=== PATIENT | female | born 1955 | race Two or more races ===

== ENCOUNTER 2022-08-21 11:21 | Outpatient (REF) | payer OTHER, SELFPAY ==
--- NOTE | ~2022-08-21 | XR_ITS ---
EXAMINATION: XR CERVICAL SPINE CLINICAL INFORMATION: Radiculopathy COMPARISON: None available. TECHNIQUE: 4 views of the cervical spine including flexion-extension were obtained. FINDINGS: Bone alignment is normal. No fracture or dislocation. There are postsurgical changes from ACDF at C5-C6. There is mild degenerative spondylosis at C6-C7. No instability on flexion-extension views. Normal prevertebral soft tissues. XR/XR cervical spine 4V IMPRESSION: Postsurgical changes from ACDF at C5-C6.
--- NOTE | ~2022-08-21 | XR_ITS ---
EXAMINATION: XR LUMBOSACRAL SPINE WITH OBLIQUES CLINICAL INFORMATION: Low back pain and sciatica COMPARISON: None available. TECHNIQUE: AP, flexion and extension, and lateral views of the lumbar spine. FINDINGS: There is curvature of the lower lumbar spine to the right. There is a 5 mm anterior subluxation of L4 with respect L5. This does not change with flexion-extension views. There is degenerative spondylosis and degenerative disc disease of the lower thoracic spine, L1-L2 and L2-L3. Lower lumbar spine facet arthritis. XR/XR lumbar spine 4V min IMPRESSION: 5 mm anterior subluxation of L4 with respect L5 stable on flexion-extension views. Degenerative changes.
== END 2022-08-21 11:22 | disposition home or self-care (01) ==
LOC: HO.HOSX 11:21
PROVIDERS: PCP Nurse Practitioner Family; Visit Provider Physician Assistant
DX: M54.12 Radiculopathy, cervical region (principal); M54.40 Lumbago with sciatica, unspecified side
CPT/HCPCS: 72050; 72110; 99212

== ENCOUNTER 2022-09-10 15:52 | Emergency (ER) | payer MEDICARE, MEDICAID, SELFPAY ==
--- NOTE | 2022-09-10 16:04 | ED.BACK ---
HPI - Back Pain/Injury General Chief Complaint: Back Pain/Injury Stated Complaint: back pain Time Seen by Provider: 09/10/22 16:21 History of Present Illness HPI Narrative: patient complains of back pain not controlled with Tylenol Motrin, she is under the care of the back specialist here at [place] and is being scheduled for an MRI, she complains of pain on both sides of her back worse on the right radiating down her legs, there is no numbness no loss of sensation no weakness no changes to bowel or bladder Related Data Home Medications Medication Instructions Recorded Confirmed albuterol sulfate 200 mcg capsules mcg inhalation 08/21/22 for inhalation amlodipine 10 mg tablet 10 mg PO DAILY 08/21/22 docusate sodium 100 mg capsule 100 mg PO BID 08/21/22 ergocalciferol (vitamin D2) 200 200 mcg PO DAILY 08/21/22 mcg/mL (8,000 unit/mL) oral drops lansoprazole 30 mg capsule,delayed 30 mg PO DAILY 08/21/22 release meclizine 25 mg tablet (Dramamine 25 mg PO DAILY PRN 08/21/22 (meclizine)) metformin 500 mg/5 mL oral solution 500 mg PO BID 08/21/22 Previous Rx's Medication Instructions Recorded oxycodone 5 mg tablet 5 mg PO Q6H PRN pain #20 tabs 09/10/22 Allergies Allergy/AdvReac Type Severity Reaction Status Date / Time codeine Allergy Dizziness Verified 08/21/22 11:43 hydromorphone Allergy Hives Verified 09/10/22 16:12 Vidodin Allergy Dizziness Uncoded 08/21/22 11:43 [facility] Past Medical History Source: nursing notes reviewed Physical Exam Vital Signs: Vital Signs: Last Vital Signs Temp 97.1 F 09/10/22 16:06 Pulse 80 09/10/22 16:06 Resp 20 09/10/22 16:06 BP 142/104 H 09/10/22 16:06 Pulse Ox 98 09/10/22 16:06 O2 Del Method Room Air 09/10/22 16:06 BMI result Body Mass Index 42.4 general appearance no distress Head is normocephalic atraumatic Neck is supple nontender Chest clear to auscultation bilateral Chest wall nontender Abdomen soft nontender The back had bilateral lower lumbar tenderness, no focal bony tenderness, skin of the back was normal, no rashes no redness Extremities for range of motion x4 Neuro no focal motor sensory deficits Course Course Course Narrative: This is a rapid medical exam. Deferred additional HPI, ROS, PE to primary provider. 67 yo female with history of asthma, pre-diabetes, HTN, cervical fusion here with lower back pain radiates to both legs L>R, worsened with movement. No numbness in the groin, NO bowel or bladder incontinence. Has MRI schedule 10/14. Followed by Spine office ([facility]). Patient seen in triage by Spine MD LESLYE. They can possibly arrange outpatient MRI for patient tomorrow, feels patient needs better pain control Patient without neurologic deficit no fever no changes to bowel or bladder is treated with pain medicine with improvement and discharged to follow with back specialist and is scheduled for MRI tomorrow Medications Administered Discontinued Medications Generic Name Dose Route Start Last Admin Trade Name Freq PRN Reason Stop Dose Admin Oxycodone HCl 5 mg 09/10/22 17:21 09/10/22 17:28 Oxycodone Hcl Immed Release 5 Mg Tablet PO 09/10/22 17:22 5 mg ONCE ONE Administration Discharge Plan Discharge Clinical Impression: Back pain Patient Disposition: Home, Self-Care Additional Instructions: we observed for almost an hour in the oxycodone which is a strong narcotic did not seem to have any bad affect so I am writing a prescription most adults 1 or 2 tablets is all that is needed at safe to take with Tylenol and Motrin Follow with if back specialist as scheduled Return any time for weakness incontinence severe pain fever any worse condition or any concerns Prescriptions: New oxycodone 5 mg tablet 5 mg PO Q6H PRN (Reason: pain) Qty: 20 0RF Rx Instructions: Partial Fill upon patient request. No Action lansoprazole 30 mg capsule,delayed release(DR/EC) 30 mg PO DAILY albuterol sulfate 200 mcg capsule inhalation docusate sodium 100 mg capsule 100 mg PO BID ergocalciferol (vitamin D2) 200 mcg/mL (8,000 unit/mL) drops 200 mcg PO DAILY meclizine [Dramamine (meclizine)] 25 mg tablet 25 mg PO DAILY PRN amlodipine 10 mg tablet 10 mg PO DAILY metformin 500 mg/5 mL solution 500 mg PO BID Interventions: ED Discharge Assessment Last Done: 09/10/22 18:56 Discharge Date/Time: 09/10/22 18:57
[2022-09-10 16:06] VITALS: BP 142/104; PULSE 80; RESP 20; TEMP 36.2; O2SAT 98; BMI 42.4
--- NOTE | 2022-09-10 16:51 | HO.NEUROPN_ITS ---
Neurosurgery Operative Note Date of Service: 09/10/22 Narrative: Mrs Jade call our office today to discuss the ongoing pain she was having in her legs, left greater than right. The pain was so bad and the MRI had been pushed also long she want to go to the emergency room for evaluation. Any time she tries to stand walk, or even if she sitting down she getting severe pain cramping going down her legs left greater than right. Denies any fevers, denies any urinary symptoms. On exam, she is uncomfortable but can stand up on her own with her cane. She can move all major muscle groups, thorough motor testing difficult secondary to pain. She had no sensory loss. No cauda equina symptoms, so rectal exam deferred. I discussed the situation with the patient as well as the physician health care legal assistant bill, that we will try to get the MRI scheduled on our end in the office tomorrow in [place] at the [facility]. Is already approved by her insurance company, we just need to get the location of the MRI changed because the 1 at [place] was going to take until the end of September. The PA Bill is going to get her comfortable, so she can get up and move around some at home and we can get her to the MRI and then formulate a surgical plan. Dr. Tang where the patient, updated on the status and agrees with the plan as outlined.
[2022-09-10] MEDS: oxyCODONE HCl Immed Release 5 MG TABLET PO (17:28)
== END 2022-09-10 18:57 | disposition home or self-care (01) ==
PROVIDERS: Emergency Provider Emergency Medicine Emergency Medical Services
DX: M54.50 Low back pain, unspecified (principal); Z79.899 Other long term (current) drug therapy
CPT/HCPCS: 99283

== ENCOUNTER 2022-10-29 16:20 | Inpatient (IN) | payer OTHER, SELFPAY ==
--- NOTE | 2022-09-24 | ECG_ITS ---
Test Reason : PRE OP in wheelchair Blood Pressure : / mmHG Vent. Rate : 068 BPM Atrial Rate : 068 BPM P-R Int : 194 ms QRS Dur : 098 ms QT Int : 400 ms P-R-T Axes : 052 -06 044 degrees QTc Int : 425 ms Normal sinus rhythm Moderate voltage criteria for LVH, may be normal variant ( R in aVL , Aaron product ) Nonspecific T wave abnormality Abnormal ECG No previous ECGs available Referred By: Yesica Christina Electronically Signed By:Emanuel Crowe
[2022-09-24 12:11] VITALS: BP 181/80; PULSE 72; RESP 16; O2SAT 97; BMI 43.2
--- NOTE | 2022-09-24 12:29 | HO.ANESPROP2 ---
Documented by User: Yesica Christina NP 11/02/22 09:54 HPI - Anesthesia Eval Consult details Narrative: 67yo F for L4-5 Oblique Lumbar Interbody Fusion, 11/03/22 No recent illness NO CP/SOB. Activity limited to back pain. Asthma stable GERD controlled with ppi FBS ~110-135 BP elevated at PAT. White coat htn. BP @ home 137/80. 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 Case/EKG reviewed with Dr Michael PINEDA Active Problems Active Problems: All Active Problems (Updated 09/24/22 @ 12:10 by Jessie Pulido, CHE) Cervical radiculopathy (Acute) Back pain of lumbar region with sciatica (Acute) Past Medical History Medical History Asthma Depression Diabetes GERD (gastroesophageal reflux disease) History of pneumonia HTN (hypertension) Hx of cancer of uterus Neck pain Peptic ulcer disease PONV (postoperative nausea and vomiting) Family History Family history of problems with anesthesia: No Surgical History Surgical History History of esophagogastroduodenoscopy (EGD) History of hysterectomy Hx of colonoscopy History of Problems with Anesthesia: Yes (PONV) Social History Social History Are you a primary home health care social worker to a significant other at home: No Do you presently have visiting nurse or other home services: Yes (BRANCH EMPLOYMENT COORDINATOR) Patient Tobacco Use Status: Former Tobacco user Quit Date: 2014 Tobacco use type: Cigarette Use of substances other than those prescribed or required for medical reasons: No Have you been hit, kicked, punched, or otherwise hurt by someone within the past year? If so, by whom?: No Spiritual Healthcare Practices: no Yazdanism Healthcare Practices: no Cultural Healthcare Practices: no Are you DNR?: No Advance Directives: Yes Advance Directives Information Provided: No Advance Directives on File: Yes Advance Directives Date on File: 04/04/18 Recently lost weight without trying: No Nutrition Risks: No Nutritional Risk Meds Allergies Allergy/AdvReac Type Severity Reaction Status Date / Time acetaminophen [From Vicodin] Allergy Dizziness, Verified 09/28/22 12:22 hives bee pollen [bee stings] Allergy Anaphylaxis Verified 09/24/22 12:29 codeine Allergy Dizzy, Verified 09/24/22 12:29 Swelling hydrocodone [From Vicodin] Allergy Dizziness, Verified 09/28/22 12:22 hives hydromorphone Allergy Hives Verified 09/10/22 16:12 spider venom [spider bites] Allergy Anaphylaxis Verified 09/24/22 12:29 Home Medications Medication Instructions Recorded Confirmed Last Taken Type amlodipine 10 mg tablet 10 mg PO DAILY 08/21/22 09/24/22 Unknown History docusate sodium 100 mg capsule 100 mg PO BID 08/21/22 09/24/22 Unknown History lansoprazole 30 mg capsule,delayed 30 mg PO DAILY 08/21/22 09/24/22 Unknown History release meclizine 25 mg tablet (Dramamine 25 mg PO DAILY PRN Vertigo 08/21/22 09/24/22 Unknown History (meclizine)) albuterol sulfate 90 mcg/actuation inhalation 09/24/22 Unknown History aerosol inhaler (Ventolin HFA) chlorthalidone 25 mg tablet 25 mg PO DAILY 09/24/22 09/24/22 Unknown History cholecalciferol (vitamin D3) 50 50 mcg PO DAILY 09/24/22 09/24/22 Unknown History mcg (2,000 unit) capsule (Vitamin D3) epinephrine 0.3 mg/0.3 mL 0.3 ml IM NEEDED anaphylaxis 09/24/22 09/24/22 Unknown History injection, auto-injector lisinopril 20 mg tablet 20 mg PO DAILY 09/24/22 09/24/22 Unknown History metformin 1,000 mg tablet 500 mg PO BID diabetes mellitus 09/24/22 09/24/22 Unknown History Exam Exam Date and Time: September 24, 2022 1229 Height,Weight and Vital Signs: Height 5 ft 2 in Weight 107.048 kg Last Vital Signs Pulse 72 09/24/22 12:11 Resp 16 09/24/22 12:11 BP 181/80 H 09/24/22 12:11 Pulse Ox 97 09/24/22 12:11 O2 Del Method Room Air 09/24/22 12:11 Pertinent Lab Results Pertinent Lab Results: Laboratory Tests 09/24/22 09/24/22 12:57 12:57 WBC 5.8 Hgb 13.3 Hct 38.9 Plt Count 263 Sodium 140 Potassium 3.4 Chloride 101 Carbon Dioxide 29 BUN 16 Creatinine 0.84 Narrative Narrative: EKG 09/2022 Vent. Rate : 068 BPM ? ? Atrial Rate : 068 BPM ?? P-R Int : 194 ms? QRS Dur : 098 ms ? ? QT Int : 400 ms ? ? ? P-R-T Axes : 052 -06 044 degrees ?? QTc Int : 425 ms ? Normal sinus rhythm Moderate voltage criteria for LVH, may be normal variant ( R in aVL , Aaron product ) Nonspecific T wave abnormality Abnormal ECG No previous ECGs available Airway Mallampati Class: I TM Dist: >3cm Neck ROM: Limited Partial: Upper Loose/Missing/Broken Teeth: Yes (few chipped lower teeth) Heart: RRR Lungs: CTAB Assessment and Plan Assessment Anesthesia Assessment: Anesthesia Plan Discussed and PAT Visit Final Anesthetic Review Family History of Problems with Anesthesia: No History of Problems with Anesthesia: Yes (PONV) Documented by User: David Wooten MD 11/03/22 11:01 [facility] Past Medical History Medical History Asthma Depression Diabetes GERD (gastroesophageal reflux disease) History of pneumonia HTN (hypertension) Hx of cancer of uterus Neck pain Peptic ulcer disease PONV (postoperative nausea and vomiting) Surgical History Surgical History History of esophagogastroduodenoscopy (EGD) History of hysterectomy Hx of colonoscopy History of Problems with Anesthesia: Yes (PONV, Allergy to Dilaudid) Social History Social History Are you a primary home health care social worker to a significant other at home: No Do you presently have visiting nurse or other home services: Yes ([employer] EMPLOYMENT COORDINATOR) Patient Tobacco Use Status: Former Tobacco user Quit Date: 2014 Tobacco use type: Cigarette Use of substances other than those prescribed or required for medical reasons: No Have you been hit, kicked, punched, or otherwise hurt by someone within the past year? If so, by whom?: No Spiritual Healthcare Practices: no Yazdanism Healthcare Practices: no Cultural Healthcare Practices: no Are you DNR?: No Advance Directives: Yes Advance Directives Information Provided: No Advance Directives on File: Yes Advance Directives Date on File: 04/04/18 Recently lost weight without trying: No Nutrition Risks: No Nutritional Risk Meds Allergies Allergy/AdvReac Type Severity Reaction Status Date / Time acetaminophen [From Vicodin] Allergy Dizziness, Verified 09/28/22 12:22 hives bee pollen [bee stings] Allergy Anaphylaxis Verified 09/24/22 12:29 codeine Allergy Dizzy, Verified 09/24/22 12:29 Swelling hydrocodone [From Vicodin] Allergy Dizziness, Verified 09/28/22 12:22 hives hydromorphone Allergy Hives Verified 09/10/22 16:12 spider venom [spider bites] Allergy Anaphylaxis Verified 09/24/22 12:29 Home Medications Medication Instructions Recorded Confirmed Last Taken Type amlodipine 10 mg tablet 10 mg PO DAILY 08/21/22 09/24/22 Unknown History docusate sodium 100 mg capsule 100 mg PO BID 08/21/22 09/24/22 Unknown History lansoprazole 30 mg capsule,delayed 30 mg PO DAILY 08/21/22 09/24/22 Unknown History release meclizine 25 mg tablet (Dramamine 25 mg PO DAILY PRN Vertigo 08/21/22 09/24/22 Unknown History (meclizine)) albuterol sulfate 90 mcg/actuation inhalation 09/24/22 Unknown History aerosol inhaler (Ventolin HFA) chlorthalidone 25 mg tablet 25 mg PO DAILY 09/24/22 09/24/22 Unknown History cholecalciferol (vitamin D3) 50 50 mcg PO DAILY 09/24/22 09/24/22 Unknown History mcg (2,000 unit) capsule (Vitamin D3) epinephrine 0.3 mg/0.3 mL 0.3 ml IM NEEDED anaphylaxis 09/24/22 09/24/22 Unknown History injection, auto-injector lisinopril 20 mg tablet 20 mg PO DAILY 09/24/22 09/24/22 Unknown History metformin 1,000 mg tablet 500 mg PO BID diabetes mellitus 09/24/22 09/24/22 Unknown History Assessment and Plan Final Anesthetic Review History of Problems with Anesthesia: Yes (PONV, Allergy to Dilaudid) NPO: Yes ASA Class: III Final Preanesthetic Review: No Changes in Pt Med Stat, Meds/Allgs Chart Reviewed, Consent Obtained/Reviewed and Anes Risks/Benef Reviewed Patient Risk: Intermediate Procedure Risk: Intermediate Anesthetic Plan Anesthetic Plan: GA Disposition: Standard PACU
[2022-09-24 13:38] LABS: Hematocrit 38.9 % (37.0-47.0); Hemoglobin 13.3 g/dl (12.0-16.0); Mean Corpuscular HGB Conc 34.2 g/dl (31.0-35.0); Mean Corpuscular Hemoglobin 28.9 pg (27.0-33.0); Mean Corpuscular Volume 84.4 fL (80.0-98.0); Mean Platelet Volume 11.4 fL (9.4-12.3); Platelet Count 263 X10*3/uL (160-400); Red Blood Count 4.61 X10*6/uL (4.20-5.50); White Blood Count 5.8 X10*3/uL (4.8-10.8)
[2022-09-24 13:43] LABS: Estimated Average Glucose 140 mg/dL; Hemoglobin A1c % 6.5 %
[2022-09-24 14:02] LABS: Anion Gap 13 (12-20); Blood Urea Nitrogen 16 mg/dL (9-16); Calcium 10.3 mg/dL (8.4-10.2); Carbon Dioxide 29 mmol/L (22-29); Chloride 101 mmol/L (96-108); Creatinine Clr Calc Pharmacy 76.8; Estimated Glomerular Filt Rate > 60; Glucose Random 179 mg/dL (60-115); Potassium 3.4 mmol/L (3.3-5.1); Sodium 140 mmol/L (135-145)
--- NOTE | 2022-09-25 17:38 | PHA.MEDREC ---
Pharmacy Consult ? Medication Reconciliation Pharmacy has reviewed the medication reconciliation.
--- NOTE | ~2022-10-29 | FL_ITS ---
EXAMINATION: XR FLUOROSCOPY WITH IMAGES CLINICAL INFORMATION: L4-5 OLIF COMPARISON: Lumbar spine 08/21/2022 TECHNIQUE: DOSE-50.5 mGy DAP-0.864 mGym2 TIME-0.7 min IMAGES-2 DOSE-20.2 mGy DAP-5.45 Gy.cm2 TIME-0.2 min IMAGES-2 DOSE-33.6 mGy DAP-0.585 mGym2 TIME-0.4 min IMAGES-2 FL/FL guidance in OR FINDINGS/IMPRESSION: Bilateral transpedicular screws with vertical stabilization bar and disc spacer at L4-L5
[2022-11-03] VITALS (12 sets, daily range): BP systolic 116–161; BP diastolic 58–90; PULSE 66–78; RESP 14–20; TEMP 36.1–36.4; O2SAT 94–98
[2022-11-03] MEDS: Lactated Ringers 1,000 ML 100 ML IVCONT (08:54)
[2022-11-03] MEDS: Scopolamine 1.5 MG PATCH.TD.3 TRANSDERMA (09:07)
[2022-11-03 09:14] LABS: Glucose, Whole Blood 140 mg/dL (60-115)
[2022-11-03] MEDS: methocarbamoL 750 MG TABLET PO (10:17)
[2022-11-03] MEDS: Gabapentin 300 MG CAPSULE PO (10:17)
--- NOTE | 2022-11-03 10:39 | MHC.SHP ---
Pre-Procedural Eval Section A Date of Service: 11/03/22 The patient is an INPATIENT: No The History & Physical has been completed within 30 days and I have reviewed it.: No Section B Chief Complaint: L4-5 OLIF Relevant Family History (Specify if Yes): No Relevant Social History: None Present Medications: see Short Stay Collaborative assessment Medical History: No relevant PMH History of Previous Operations: No relevant previous surgery Allergies: Allergies Allergy/AdvReac Type Severity Reaction Status Date / Time acetaminophen [From Vicodin] Allergy Dizziness, Verified 09/28/22 12:22 hives bee pollen [bee stings] Allergy Anaphylaxis Verified 09/24/22 12:29 codeine Allergy Dizzy, Verified 09/24/22 12:29 Swelling hydrocodone [From Vicodin] Allergy Dizziness, Verified 09/28/22 12:22 hives hydromorphone Allergy Hives Verified 09/10/22 16:12 spider venom [spider bites] Allergy Anaphylaxis Verified 09/24/22 12:29 Review of Systems Sugical H&P ROS: Negative: Constitution, Cardiovascular, Respiratory, Neurological, Psychiatric, Hem-Onc, Allergic/Immunologic, Gastrointestinal, Genitourinary, Musculoskeletal, Integumentary, Endocrine and Eyes/Ears/Nose/Throat Exam Surgical H&P Exam: Not Evaluated: HEENT, Not Evaluated: Heart, Not Evaluated: Lungs, Not Evaluated: Extremities, Not Evaluated: Abdomen, Not Evaluated: Skin and Not Evaluated: Neurological Plan Diagnosis/Plan: Unchanged I have reviewed the history and physical and performed a pertinent physical examination on my patient. No changes have occurred unless specified. L4-5 OLIF Time Spent With Patient Time: Total time managing care of this patient today __10__ minutes.
[2022-11-03] MEDS: oxyCODONE HCl ER 10 MG TAB.ER.12H PO (11:04)
--- NOTE | 2022-11-03 14:25 | P.OP_ITS ---
Operative Note Operative Note Date of Service: 11/03/22 Narrative: Preop Diagnosis: 1.) L4-5 spondylolisthesis with bilateral leg pain Procedure: L4-5 discectomy, arthrodesis and implantation cage through an anterolateral, retroperitoneal approach; posterior instrumented fusion L4-5; allograft Consent Informed Consent was obtained for this operation. I have explained the nature, purpose and benefits of the operation. I have discussed the risks and benefit of the operation including possible complications or adverse events with patient/family. Alternative(s) were discussed with the patient with their relative benefits and risks as well as the consequences of not accepting the operation were included in obtaining consent. Surgeon: MARY JUAN MD, PHD Procedure Assisted By: [] Description of Procedure the patient is suffer from back pain and bilateral leg pain due to an L4-5 spondylolisthesis. The patient was offered an oblique lumbar interbody fusion L4-5. The procedure complications were explained. The patient was consented. The patient was brought to the operating room and endotracheally intubated. The patient was turned in a lateral position with the left side up. Prep and drape was done followed by timeout. A small incision was made in the left lower abdominal quadrant. The muscle fascia was opened after which the 3 muscle layer was split to enter the retroperitoneal space. Dilators were docked in the anterior one third of the L4-5 disc space followed by a retractor. The retractor was opened. The L4-5 disc space was exposed. An annulotomy was done after which an elevator Mckee was used to release the disc material from its endplates and to perforate the contralateral side. A partial discectomy was done. An 8 and 10 mmheight trial implant were inserted. The discectomy was completed. The endplates were prepared. An 10 x 45 mm with 0 degree lordosis 4 web cage filled with allograft was inserted into the disc space under fluoroscopic guidance. This resulted in reduction of the spondylolisthesis. The retractor was removed. Hemostasis was done. The incision was closed in 2 layers. Steri- Strips used to approximate incision. An OpSite with Tegaderm was used to cover the incision. This marked first part of the procedure. The patient was turned prone on the Donte spine table. 2C arms were installed for fluoroscopy. Prep and drape was done followed by a second timeout. 2 paramedian incisions were made lateral from the L4 and L5 pedicles. The muscle fascia was opened after which the muscle layer was split bluntly to expose the posterolateral gutter. The following steps were taken. A pediguard tap was used to create a transpedicular trajectory into the vertebral body. A K wire was placed. A specially designed instrument was advanced over the K wire to decorticate the posterolateral gutter in preparation for the posterolateral fusion. A pedicle screw was advanced over the K wire and the K wire was removed. The steps were done for the bilateral L4-5 pedicles. A total of for screws were placed with a diameter of 6.5 x 45 mm. Pedicle screws were connected with 45 mm floresita bilaterally and locked down with locking caps. The extension towers were removed. The posterolateral gutter was filled with allograft to complete the posterolateral [] fusion Hemostasis was done and the incision was closed in 2 layers. Steri-Strips were used to approximate the incision. An OpSite were taken and was used to cover the incision. All sponge and needle counts were correct. Patient was extubated and transferred in stable is to recovery room. Anesthesia: General Estimated Blood Loss (ml): 25 Duration of Surgery: 2 hours Postoperative Plan: Admit to floor for observation Complications: None
[2022-11-03] MEDS: fentaNYL citrate/PF 100 MCG/2 ML VIAL 25 MCG IVPUSH ×2 (14:35→14:55)
[2022-11-03] MEDS: oxyCODONE HCl Immed Release 5 MG TABLET PO (14:35)
[2022-11-03] MEDS: Ketorolac Tromethamine 15 MG/ML VIAL IVPUSH ×2 (14:47→19:42)
[2022-11-03] MEDS: ondansetron HCL 4 MG/2 ML VIAL IVPUSH ×2 (15:04→18:17)
[2022-11-03 16:23] LABS: Glucose, Whole Blood 232 mg/dL (60-115)
[2022-11-03] MEDS: oxyCODONE HCl Immed Release 5 MG TABLET 10 MG PO ×2 (18:18→23:34)
[2022-11-03] MEDS: ceFAZolin Sodium/Dextrose,Iso 2 GM/50 ML PIGGYBACK IV ×2 (18:18→23:34)
[2022-11-03 20:43] LABS: Glucose, Whole Blood 269 mg/dL (60-115)
[2022-11-03] MEDS: Docusate Sodium 100 MG CAPSULE PO (23:33)
--- NOTE | 2022-11-03 23:55 | PC.NURSE ---
neuros intact when pt got up to br this evening she vomited small amount of clear secretions commode was placed in room. she also stated has some pain in left leg. will give her something for pain and will monitor pain. dsgs on back c/d/i left side of abdomen dsg with mod. staining. pt voided
[2022-11-04] MEDS: Ketorolac Tromethamine 15 MG/ML VIAL IVPUSH ×3 (00:40→13:13)
[2022-11-04] MEDS: oxyCODONE HCl Immed Release 5 MG TABLET 10 MG PO ×2 (05:49→11:49)
[2022-11-04] MEDS: ceFAZolin Sodium/Dextrose,Iso 2 GM/50 ML PIGGYBACK IV (05:50)
[2022-11-04] MEDS: Cyclobenzaprine HCl 5 MG TABLET PO (05:56)
[2022-11-04 07:26] VITALS: BP 113/57; PULSE 60; RESP 16; TEMP 36; O2SAT 95
[2022-11-04 07:36] LABS: Glucose, Whole Blood 173 mg/dL (60-115)
[2022-11-04 07:38] LABS: Anion Gap 15 (12-20); Blood Urea Nitrogen 24 mg/dL (9-16); Calcium 9.5 mg/dL (8.4-10.2); Carbon Dioxide 28 mmol/L (22-29); Chloride 97 mmol/L (96-108); Creatinine Clr Calc Pharmacy 65.1; Estimated Glomerular Filt Rate 56; Glucose Random 166 mg/dL (60-115); Potassium 3.5 mmol/L (3.3-5.1); Sodium 136 mmol/L (135-145)
[2022-11-04] MEDS: metFORMIN HCl 500 MG TABLET PO (08:49)
[2022-11-04] MEDS: Docusate Sodium 100 MG CAPSULE PO (08:49)
[2022-11-04] MEDS: lisinopriL 20 MG TABLET PO (08:49)
[2022-11-04] MEDS: Cholecalciferol (Vitamin D3) 25 MCG TABLET 50 MCG PO (08:49)
[2022-11-04] MEDS: Omeprazole 20 MG CAPSULE.DR PO (08:49)
[2022-11-04] MEDS: hydroCHLOROthiazide 25 MG TABLET PO (08:50)
[2022-11-04] MEDS: amLODIPine Besylate 10 MG TABLET PO (08:50)
[2022-11-04 09:21] VITALS: BP 113/57; PULSE 60; O2SAT 95
--- NOTE | 2022-11-04 09:25 | P.DS_ITS ---
DS: Providers Provider Date of Service: 11/04/22 Date of admission: 10/29/22 16:20 Primary care physician: Sinai Wagner NP DS: Transfer Hospital Acceptance Reason for Transfer: Post-op Rehabilitation Name of Facility: Pending confirmation by skilled nursing facilities professional. Patient would prefer [facility] in [facility] DS: Diagnosis Discharge Diagnosis (1) Back pain of lumbar region with sciatica: Status: Acute (2) S/P discectomy: Status: Acute (3) S/P lumbar fusion: Status: Acute DS: Summary Time Spent with Patient Time attestation: Total time managing care of this patient today __30__ minutes. Discharge coordination time: Greater than 30 minutes Quality: Safe Use of Opioids Does Pt have an Active Cancer Diagnosis on the Problem List?: No Quality: Stroke Does the patient have a stroke diagnosis?: No Physical Exam Vital Signs: Vital Signs: Last Vital Signs Temp 96.8 F 11/04/22 07:26 Pulse 60 11/04/22 07:26 Resp 16 11/04/22 07:26 BP 113/57 L 11/04/22 07:26 Pulse Ox 95 11/04/22 07:26 O2 Del Method Room Air 11/04/22 07:26 O2 Flow Rate 6 11/03/22 14:16 BMI result Body Mass Index 43.2 DS: Data Data Completed and Pending Labs on day of discharge: Laboratory Results - last 24 hr 11/03/22 11/03/22 11/04/22 16:10 20:29 07:19 Sodium 136 Potassium 3.5 Chloride 97 Carbon Dioxide 28 Anion Gap 15 BUN 24 H Creatinine 0.99 Estim Creat Clear Calc 65.1 Estimated GFR 56 POC Glucose 232 H 269 H Random Glucose 166 H Calcium 9.5 D 11/04/22 07:32 Sodium Potassium Chloride Carbon Dioxide Anion Gap BUN Creatinine Estim Creat Clear Calc Estimated GFR POC Glucose 173 H Random Glucose Calcium Discharge Plan Discharge Anticipated Discharge Date/Time: 11/04/22 17:00 Patient Disposition: Xfer Inpatient Rehab Fac Discharge Diagnosis: Spinal stenosis, lumbar region with neurogenic claudication S/P L-4-5 discectomy with fusion POD:1 Referrals: Sinai Wagner NP [Primary Care Provider] - 1 Week Discharge Medications: Continued lisinopril 20 mg tablet 20 mg PO DAILY Patient Comments: I only take as needed if my blood pressure is high chlorthalidone 25 mg tablet 25 mg PO DAILY epinephrine 0.3 mg/0.3 mL auto-injector 0.3 ml IM NEEDED albuterol sulfate [Ventolin HFA] 90 mcg/actuation HFA aerosol inhaler inhalation cholecalciferol (vitamin D3) [Vitamin D3] 50 mcg (2,000 unit) capsule 50 mcg PO DAILY metformin 1,000 mg tablet 500 mg PO BID oxycodone 5 mg tablet 5 mg PO Q6H PRN (Reason: Pain, Moderate) Qty: 20 0RF Rx Instructions: Partial Fill upon patient request. lansoprazole 30 mg capsule,delayed release(DR/EC) 30 mg PO DAILY docusate sodium 100 mg capsule 100 mg PO BID meclizine [Dramamine (meclizine)] 25 mg tablet 25 mg PO DAILY PRN (Reason: Vertigo) amlodipine 10 mg tablet 10 mg PO DAILY Discharge Orders: Discharge Order (Routine); Ordered 11/04/22 Ordered By: Fan Malin Diet: Diabetic diet Activity on Discharge: As tolerated Stand Alone Forms: Patient Portal Discharge page Activity Restrictions/Additional Instructions: After your spinal surgery we ask you to observe the following restrictions/guidelines: Activity: It is normal to feel some discomfort as you increase your activity, but that will improve with time. We ask you avoid heavy lifting or acitivities that cause pain. As a general rule, 8lbs is a safe limit for lifting right after surgery. Walk as much as you feel comfortable but not to exhaustion. You will feel extra tired the first few days after surgery. Stay well hydrated. It is OK to walk up and down stairs You may return to driving when you are off narcotics (such as vicodin, oxycodone, dilaudid, etc), and you are back to normal functional capacity. If you have any concerns please check with office before driving. Return to work is specific to each patient and each surgery, so please speak wi th your doctor/PA at first follow up. Please bring paperwork such as FMLA at that time if you need it filled out. Medications: We will give you a short supply of narcotics after surgery (usually one weeks worth). If you need more please call the office but do not use more than prescribed. You will need to give our office 48 hours notice if you need narcotics refilled and we do not fill narcotics on weekends or evenings. If you are on a narcotic, it is a good idea to take a stool softener such as colace or senna to avoid constipation If you take blood thinner such as aspirin, Plavix, Coumadin, Effient, Eliquis etc for conditions such as Afib, DVT, Pulmonary embolus, coronary disease, stents etc please speak with your surgeon about specific details as to when you can resume these medications. You can resume NSAIDs on post op day 1 (eg: Motrin, Naproxen, etc). Follow up: Please call the office, , after surgery to arrange a 3 week follow up for wound check. Wound Care: You may remove your dressing on the first day after surgery. You may leave open to air. Please do not remove the steri strips underneath. they will fall off on their own in one week. IT IS NORMAL FOR THE WOUND TO OOZE OR BE BLOODY FOR A FEW DAYS AFTER SURGERY. IF THIS HAPPENS JUST PLACE NEW DRESSING OVER IT TO AVOID STAINING CLOTHES. You may shower on post op day # 1 We ask that you do not let the water soak the wound. If it does get wet, just towel dry lightly. Please do not scrub your incision or place any type of chemical/ointment on the wound. No tub baths, pools or jacuzzis for one month. If you have any leaking or redness from your wound, or fevers, please call office. Care Plan Goals: See above Health Concerns: See above Plan of Treatment: See above Assessment: See above
--- NOTE | 2022-11-04 09:52 | MHC.CM.PN ---
Addendum entered by Priyanka Melgar 11/04/22 13:30: AUTH HAS BEEN OBTAINED BY SNF, BLS BOOKED FOR 3 PM WITH JOANNE. RN AWARE. HCP NOTIFIED Original Note: IMM DELIVERED PT LIVES ALONE , USES [facility] FOR MOBILITY. NO PRIOR SERVICES. P.T HAS RECOMMENDED STR AND PT CHOOSES [facility] (REFERRAL SENT) + HCP AT HOME BUT AGREEABLE TO DO A NEW ONE + COVID VAX X4 PCP [facility] DP:PT HAS BEEN MEDICALLY CLEARED FOR DC TO [facility] HAS ACCEPTED PENDING AUTH. AUTH HAS BEEN SUBMITTED BY CENTER. WILL AWAIT.
[2022-11-04 11:46] LABS: Glucose, Whole Blood 134 mg/dL (60-115)
--- NOTE | 2022-11-04 14:11 | HO.POSTANES ---
Post Anesthesia Evaluation Post Anesthesia Evaluation Date of Service: 11/04/22 Vital Signs: Vital Signs Temp Pulse Resp BP Pulse Ox O2 Del Method 11/04/22 09:21 60 113/57 L 95 11/04/22 07:26 96.8 F 60 16 113/57 L 95 Room Air Anesthesia: General Endotracheal-GETA Mental Status: Awake Pain Control: Satisfactory Nausea/Vomiting: None Hydration: Adequate Anesthesia-Related Issues: No Anes. Related Issues
== END 2022-11-04 15:25 | DRG 460 ==
LOC: HO.SSSA 11-03 10:54 → HO.S3 11-03 14:36
PROVIDERS: Nurse Practitioner; Admitting Provider Physician Assistant; PCP Nurse Practitioner Family; Visit Provider Neurological Surgery
PROC: 0SG00A0 Fusion of Lumbar Vertebral Joint with Interbody Fusion Device, Anterior Approach, Anterior Column, Open Approach (ICD-10-PCS; principal; 2022-11-03 10:40)
DX: M48.062 Spinal stenosis, lumbar region with neurogenic claudication (principal); M43.16 Spondylolisthesis, lumbar region; J45.909 Unspecified asthma, uncomplicated; K21.9 Gastro-esophageal reflux disease without esophagitis; I10 Essential (primary) hypertension; Z87.891 Personal history of nicotine dependence; Z79.84 Long term (current) use of oral hypoglycemic drugs; Z79.899 Other long term (current) drug therapy
CPT/HCPCS: 36415; 80048; 82947; 83036; 85027; 93005; 97162; C1713; J0690; J1100; J1170; J1885; J2250; J2270; J2405; J3010; L8699

== ENCOUNTER → 2022-10-29 16:20 | Outpatient (BNV) | payer OTHER, SELFPAY | PROVIDERS: Admitting Provider Physician Assistant; PCP Nurse Practitioner Family; Visit Provider Neurological Surgery | DX: M43.16 Spondylolisthesis, lumbar region (principal) | CPT/HCPCS: 20930; 22558; 22612; 22840; 22853; 99024; 99212 ==

== ENCOUNTER 2022-11-24 14:20 | Outpatient (AMB) | payer OTHER, SELFPAY ==
--- NOTE | 2022-11-24 14:50 | HO.SPINEOV ---
Intake Intake Visit Reasons: 1st Post-op Allergies acetaminophen [From Vicodin] Allergy (Verified 09/28/22 12:22) Dizziness, hives bee pollen [bee stings] Allergy (Verified 09/24/22 12:29) Anaphylaxis codeine Allergy (Verified 09/24/22 12:29) Dizzy, Swelling hydrocodone [From Vicodin] Allergy (Verified 09/28/22 12:22) Dizziness, hives hydromorphone Allergy (Verified 09/10/22 16:12) Hives spider venom [spider bites] Allergy (Verified 09/24/22 12:29) Anaphylaxis Assessment & Plan Assessment & Plan (1) Back pain of lumbar region with sciatica: Code(s): M54.40 - Lumbago with sciatica, unspecified side Plan POD: 21 PROCEDURE: L4-L5 OLIF Mrs. Jade presents to the office today for her 1st postop visit. She reports that the pain in her legs has significantly improved. She reports her L leg pain during the day is well controlled, but states she still has L leg pain at night. She reports that overall her leg pain is significantly better than pre-operatively. She does continue to endorse some left-sided numbness and L1/ L2 dermatome distribution, but states that this is normal for her (this was previously addressed by LESLYE Fenton). Otherwise her sensation is grossly intact. She reports no urinary incontinence, issues voiding, or saddle anesthesia. She has full 5/5 strength in her right lower extremity, but continues to have 4/5 strength in her left lower extremity (pain limiting). Her lower extremity reflexes are 2+ and intact bilaterally. Left lateral incision site and posterior incision sites are C/D/I without erythema, purulence, fluctuance, or edema. She still had some Steri-Strips on the left lateral and posterior incisions; these were removed. She reports that she recently ran out of her pain medication, and has not taken it in a few days. She was inquiring about continuing pain medication and asked about alternatives. At this time having her continue to take Tylenol 1000 mg TID, and adding Robaxin 750 mg TID will likely provide her with good pain relief. The Robaxin will be sent electronically to her pharmacy. She will be scheduled for a 6 week follow-up. Medications: New methocarbamol 750 mg PO TID PRN 30 tabs 0RF Moderate pain Coding Level of Care Code Est Pt Level 4 (25412) Diagnoses Back pain of lumbar region with sciatica M54.40 Time Spent (min) 30
== END 2022-11-24 14:52 | disposition home or self-care (01) ==
PROVIDERS: PCP Nurse Practitioner Family; Visit Provider Neurological Surgery
DX: M54.40 Lumbago with sciatica, unspecified side (principal)
CPT/HCPCS: 99214

== ENCOUNTER → 2022-11-24 14:20 | Outpatient (BNVA) | payer OTHER, SELFPAY | PROVIDERS: PCP Nurse Practitioner Family; Visit Provider Neurological Surgery | DX: M54.42 Lumbago with sciatica, left side (principal); R20.2 Paresthesia of skin; Z09 Encounter for follow-up examination after completed treatment for conditions other than malignant neoplasm | CPT/HCPCS: 99212 ==

== ENCOUNTER 2023-01-05 12:48 | Outpatient (AMB) | payer OTHER, SELFPAY ==
--- NOTE | 2023-01-05 13:02 | A.SPINEOV_ITS ---
Intake Intake Visit Reasons: 6 week f/u Intake Note: Ms. Jade is here today for her 2nd post-op visit. Silver Recovery Operator Required: No Allergies acetaminophen [From Vicodin] Allergy (Verified 09/28/22 12:22) Dizziness, hives bee pollen [bee stings] Allergy (Verified 09/24/22 12:29) Anaphylaxis codeine Allergy (Verified 09/24/22 12:29) Dizzy, Swelling hydrocodone [From Vicodin] Allergy (Verified 09/28/22 12:22) Dizziness, hives hydromorphone Allergy (Verified 09/10/22 16:12) Hives spider venom [spider bites] Allergy (Verified 09/24/22 12:29) Anaphylaxis Assessment & Plan Assessment & Plan (1) S/P lumbar fusion: Code(s): Z98.1 - Arthrodesis status Plan Anita is a 67 y/o female patient who comes in today for her 2nd postoperative visit. She is s/p L4-5 discectomy & fusion. She initially had [id number] pain remaining in her left leg/low back which she states is largely resolved with the continuation of [id number] medicine, supplemented with the occasional Robaxin. She states that the Robaxin helps her to get over the hump between her 1st and 2nd postoperative visit and allowed her to return to relatively normal activity much quicker. She states that she is able to make her 10 day prescription last for 6 weeks, and found to be very beneficial in she had breakthrough symptoms. She reports that she no longer needs to ambulate with a cane and is able to walk on her own but does feel that she needs to take breaks after prolonged periods of walking (> 10 minutes). Overall she is very satisfied with her surgery and does not feel that she needs continued follow-up at this time. She expressed her continued gratitude for LESLYE Gottlieb and this instructional writer for the work we did to help her regain her independence and begin living without pain. On exam the patient is able to ambulate well, stands from a seated position without difficulty, and has no sensory deficits. Her incision site is well healed without signs of erythema, edema or drainage. Fan Tang MD,PhD [facility] Medications: Changed From methocarbamol 750 mg PO TID PRN 30 tabs 0RF Moderate pain To methocarbamol 750 mg PO BID PRN 20 tabs 0RF Moderate pain Coding Level of Care Code Global (24033) Diagnoses S/P lumbar fusion Z98.1
== END 2023-01-05 13:58 | disposition home or self-care (01) ==
PROVIDERS: PCP Nurse Practitioner Family; Visit Provider Physician Assistant
DX: Z98.1 Arthrodesis status (principal)
CPT/HCPCS: 99024

== ENCOUNTER → 2023-01-05 12:48 | Outpatient (BNVA) | payer OTHER, SELFPAY | PROVIDERS: PCP Nurse Practitioner Family; Visit Provider Physician Assistant ==

== ENCOUNTER 2023-01-15 13:52 | Outpatient (REF) | payer OTHER, SELFPAY ==
--- NOTE | ~2023-01-15 | XR_ITS ---
EXAMINATION: XR LUMBOSACRAL SPINE WITH OBLIQUES CLINICAL INFORMATION: Follow-up status-post L4-L5 posterior fusion. COMPARISON: Intraoperative fluoroscopy dated 11/03/2022; lumbar spine radiographs dated 08/21/2022. TECHNIQUE: AP and lateral (neutral, flexion and extension) views of the lumbosacral spine are submitted. FINDINGS: There is bony demineralization. A slight thoracolumbar levoscoliosis is seen. There is well-maintained alignment status-post L5-S1 posterior fusion and discectomies, with intact posterior fixator rods, pedicular screws and disc spacers. No hardware failure loosening is seen. There is no instability with flexion or extension. The remaining disc spaces are relatively well-maintained. No acute fracture or spondylolisthesis is seen. There is multi-level thoracolumbar spondylosis. The posterior elements are intact. The paravertebral soft tissues are unremarkable XR/XR lumbar spine 4V min IMPRESSION: There is well-maintained alignment status-post L4-L5 posterior fusion and discectomy. No hardware failure loosening is seen. There is no instability with flexion or extension.
== END 2023-01-15 13:53 | disposition home or self-care (01) ==
LOC: HO.HOSX 13:52
PROVIDERS: PCP Nurse Practitioner Family; Visit Provider Physician Assistant
DX: M54.50 Low back pain, unspecified (principal); Z98.1 Arthrodesis status
CPT/HCPCS: 72110

== ENCOUNTER 2023-01-15 13:52 | Outpatient (AMB) | payer OTHER, SELFPAY ==
--- NOTE | 2023-01-15 14:02 | A.SPINEOV_ITS ---
Intake Intake Visit Reasons: pt fell and is having lower back pain Intake Note: Ms. Jade is here today c/o low back pain s/p fall. City Magistrate Required: No Allergies acetaminophen [From Vicodin] Allergy (Verified 09/28/22 12:22) Dizziness, hives bee pollen [bee stings] Allergy (Verified 09/24/22 12:29) Anaphylaxis codeine Allergy (Verified 09/24/22 12:29) Dizzy, Swelling hydrocodone [From Vicodin] Allergy (Verified 09/28/22 12:22) Dizziness, hives hydromorphone Allergy (Verified 09/10/22 16:12) Hives spider venom [spider bites] Allergy (Verified 09/24/22 12:29) Anaphylaxis Assessment & Plan Assessment & Plan (1) S/P lumbar fusion: Code(s): Z98.1 - Arthrodesis status Plan Anita reports that she comes back in today to be evaluated for a fall that she sustained a few days ago after she fell forward from a seated position in twisted while falling onto the floor. To recap she is status post L4-5 lumbar fusion. She states that she has had low-grade back pain since the incident, and came in to see us due to concerns regarding the return of her pain after the fall. She does report that she has continued to utilize for muscle relaxer medication for good relief of pain. In the office today she is able to ambulate well but is back to using her cane. She has full mobility of her upper and lower extremities. She is able to rise from a seated position without difficulty but does have to utilize her cane. All of her incision sites are clean and well healed. X-rays of the lumbar spine were compared to her fluoroscopy images from her surgery. Posterior instrumentation and L4-5 cage appear unchanged and stable. At this time his believe that she likely strained some muscles in her back. She does endorse continued good relief of her symptoms with Robaxin. She is advised to continue walking / mobilizing around her house, but to attempt to rest and take it easy for the next few days. It is likely that her pain resolve on its own without the need for any further intervention aside from continued Robaxin use for the next couple of weeks. Total amount of time spent in this visit was 20 minutes in discussion of symptoms, X-ray lumbar spine imaging results and subsequent plan of care. Fan Tang MD,PhD [facility] Orders: Orders XR lumbar spine 4V min Today Z98.1 - Arthrodesis status Coding Level of Care Code Global (97932) Diagnoses S/P lumbar fusion Z98.1
== END 2023-01-15 14:41 | disposition home or self-care (01) ==
PROVIDERS: PCP Nurse Practitioner Family; Visit Provider Physician Assistant
DX: Z98.1 Arthrodesis status (principal)
CPT/HCPCS: 99024

== ENCOUNTER 2023-12-06 11:14 | Outpatient (REF) | payer OTHER, SELFPAY | END 2023-12-06 11:15 | disposition home or self-care (01) | LOC: HO.HOSX 11:14 | PROVIDERS: PCP Nurse Practitioner Family; Visit Provider Physician Assistant | DX: M54.12 Radiculopathy, cervical region (principal) | CPT/HCPCS: 99212 ==

== ENCOUNTER 2023-12-06 11:14 | Outpatient (AMB) | payer OTHER, SELFPAY ==
--- NOTE | 2023-12-06 11:49 | A.SPINEOV_ITS ---
Intake Visit Reasons: neck and hand pain Intake Note: Ms. garcia is here today c/o neck and hand pain. 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 Required: No Allergies acetaminophen [From Vicodin] Allergy (Verified 12/06/23 11:50) Dizziness, hives bee pollen [bee stings] Allergy (Verified 12/06/23 11:50) Anaphylaxis codeine Allergy (Verified 12/06/23 11:50) Dizzy, Swelling hydrocodone [From Vicodin] Allergy (Verified 12/06/23 11:50) Dizziness, hives hydromorphone Allergy (Verified 12/06/23 11:50) Hives spider venom [spider bites] Allergy (Verified 12/06/23 11:50) Anaphylaxis Assessment & Plan Assessment & Plan (1) Cervical radiculopathy: Code(s): M54.12 - Radiculopathy, cervical region Category: Medical Plan Anita is a pleasant 68-year-old female who comes in today as an established patient with a new complaint. She has a Hx of previous patient new complaint. She has a Hx of previous C5-6 ACDF with excellent relief of her R arm pain. She had a subsequent OLIF completed and had fantastic resolution of her low back pain. Unfortunately, a couple of weeks ago without inciting incident she began experiencing a severe sharp/shooting pain from her neck into her right upper extremity. She states that the pain starts in the base of her neck shoots over her right shoulder through the right deltoid down the right triceps terminating near the right elbow. She has no pain in her forearm but reports a sensation of numbness and tingling near her wrist. 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 The patient has 3/5 strength in her right upper extremity, which can come close to 4/5 strength but causes her to elicit pain. Her left upper extremity has 5/5 strength diffusely. She has hyperreflexia in her bilateral upper extremities, most prominent in brachioradialis. She has bilateral Gu's. She walks well without a spastic gait. I would like to send the patient for a set of dynamic cervical spine x-rays to ensure continued instrumentation stability. If this shows no obvious subluxation or instrumentation changes I will be sending her for a MRI of her cervical spine. I would like her to call the office to set up an appointment after her imaging. Fan Tang MD,PhD [facility] Orders: Orders XR cervical spine 4V Today M54.12 - Radiculopathy, cervical region Coding Level of Care Code Est Pt Level 4 (15833) Diagnoses Cervical radiculopathy M54.12
== END 2023-12-06 12:00 | disposition home or self-care (01) ==
PROVIDERS: PCP Nurse Practitioner Family; Visit Provider Physician Assistant
DX: M54.12 Radiculopathy, cervical region (principal)
CPT/HCPCS: 99214

== ENCOUNTER 2023-12-07 09:41 | Outpatient (REF) | payer OTHER, SELFPAY ==
--- NOTE | ~2023-12-07 | XR_ITS ---
EXAMINATION: XR cervical spine 4V CLINICAL INFORMATION: Radiculopathy COMPARISON: Cervical spine radiographs 08/22/2023 TECHNIQUE: 4 views of the cervical spine were obtained. FINDINGS: The cervical spine is visualized to the level of C6-C7 on the lateral view. Status post C5-C6 anterior cervical discectomy and spinal fusion with interbody disc spacer. No evidence of hardware fracture or complication. Alignment is maintained. No significant osseous fusion is noted across the vertebral bodies. Vertebral heights are maintained. No instability on flexion extension views. Disc space heights are maintained. No prevertebral soft tissue swelling. XR/XR cervical spine 4V IMPRESSION: 1. Status post C5-C6 anterior cervical discectomy and spinal fusion. No evidence of hardware fracture or complication. 2. No significant degenerative disc disease. Electronically signed by: Babita Jimenez MD 12/30/2023 09:38 PM EDT
== END 2023-12-07 09:42 | disposition home or self-care (01) ==
LOC: HO.HOSX 09:41
PROVIDERS: Visit Provider Physician Assistant
DX: M54.12 Radiculopathy, cervical region (principal)
CPT/HCPCS: 72050

== ENCOUNTER → 2023-12-27 10:38 | Outpatient (BNV) | payer OTHER, SELFPAY | PROVIDERS: Visit Provider Radiology Diagnostic Radiology | DX: M54.12 Radiculopathy, cervical region (principal) | CPT/HCPCS: 72141 ==

== ENCOUNTER 2023-12-27 10:44 | Outpatient (REF) | payer OTHER, SELFPAY ==
--- NOTE | ~2023-12-27 | MR_ITS ---
EXAMINATION: MR CERVICAL SPINE WITHOUT CONTRAST CLINICAL INFORMATION: Prior anterior fusion C5-6 with discectomy and disc prosthesis. Surgery 1.5 years prior. Patient complaining of neck pain at night with right arm tingling and weakness times multiple months. COMPARISON: [facility] cervical spine without contrast 07/01/2021. Plain film cervical spine 12/07/2023. TECHNIQUE: Multiplanar multisequence MR imaging of the lumbar spine was done without IV contrast. Examination was performed on a 1.5 Naima Siemens magnet, utilizing standard sequences. Please note, due to [facility] contractual, systems, and staffing issues, an [facility] [place] was not available for review and dictation of this case until 01/18/2024. FINDINGS: CORONAL ALIGNMENT: -There is a minimal levoconvex scoliosis, possibly positional. SAGITTAL ALIGNMENT: - There is straightening of the normal lordosis. -There is a 2 mm stairstep type retrolisthesis of C2 on C3, C3 on C4, and C4 and C5. These have developed since the prior study. -There is a trace anterolisthesis of C6 on C7, also new from the prior. -Alignment is otherwise anatomic. POSTOPERATIVE CHANGES: -Anterior fusion and discectomy at C5-6 with disc prosthesis and oblique interbody screws. Metallic hardware creates localized susceptibility artifact, obscuring immediately adjacent soft tissue and bone. VERTEBRAL BODIES/BONE MARROW: -Within the confines of susceptibility artifact, there is now bone marrow edema or abnormal infiltrative bone marrow signal. There are no compression deformities. There are mild to moderate degenerative changes at the atlantoaxial joint. DISCS: -There is mild loss of disc height and signal at C2-3, C3-4, and C4-C5. -There is minimal loss at C6-7. -Discs below C7 to the level of T4 appear normal. SPINAL CORD: -Normal caliber and signal throughout. IMAGED BRAIN: -There are nonspecific T2 hyperintensities in the mid christoph and midbrain, presumably small vessel ischemic changes. -The pituitary appears enlarged with mild expansion of the sella, convex superior border, and as a small associated focus of T2 hyperintensity in the anterior left aspect of the gland. There may be erosion of the inferior cerebellar cortex with isoattenuating T2 and T1 material extending into the posterior left sphenoid. PREVERTEBRAL AND PARAVERTEBRAL SOFT TISSUES: - Within normal limits. -Thyroid is obscured by a saturation band. Axial Disc Space Images: C2-3: Subtle anterolisthesis. Small central disc protrusion with annular fissuring is present, indenting mildly on the ventral thecal sac and minimally narrowing the central canal. There is no cord contact. Moderate left and mild right hypertrophic facet changes are present, and mild bilateral uncinate hypertrophic changes. There is moderate left and mild right neural foraminal narrowing. Findings are unchanged. C3-4: Subtle anterolisthesis. Left paracentral protrusion of disc material is present, superimposed upon a shallow diffuse disc bulge. This indents upon the ventral thecal sac, and contacts and minimally flattens the ventral left aspect of the cord. No cord signal abnormality, and there is preserved CSF signal posterior and lateral to the cord. Moderate left and mild right hypertrophic facet changes are present, with the findings contributing to mild to moderate bilateral neural foraminal narrowing. Left paracentral disc protrusion is new, and facet changes are worse. C4-5: Subtle anterolisthesis. Present shallow bulging disc present with a superimposed small central disc protrusion with annular fissuring. This indents upon the ventral thecal sac but does not contact cord. Marked superior right and moderate left facet hypertrophy is present, with bilateral uncinate spurring. Combination of findings resulting in severe right and moderate left neural foraminal narrowing. Mild central canal narrowing. Central disc protrusion and facet degeneration is worsened. C5-6: Anterior fusion and discectomy since the prior study. Susceptibility artifact. There is a concentric disc osteophytic bulge present which indents upon the ventral thecal sac but does not definitively contact the cord. There are mild to moderate bilateral hypertrophic facet and more significant bilateral uncinate spurs, contributing to mild to moderate central canal narrowing, and moderate right greater than left neural foraminal narrowing. C6-7: There is a diffuse bulging disc present with a superimposed central broad-based disc protrusion with annular fissuring. This indents upon the ventral thecal sac, and appears to contact and minimally flatten the ventral aspect of the cord. There is effacement of CSF space posterior to the cord. Minimal hypertrophic facet changes left greater than right, with no significant neural foraminal narrowing. Findings appear similar to the prior study. C7-T1: There is a small central disc protrusion, which indents upon the ventral thecal sac but does not contact the cord. There are mild hypertrophic facet changes right greater than left, and mild to moderate uncinate spurring bilaterally. There is mild right greater than left neural foraminal narrowing and mild central canal narrowing. Findings appear unchanged. T1-T4: No significant central canal or neural foraminal narrowing at any level. There is a small central disc protrusion at T2-3 without significant mass effect. MR/MR cervical spine wo con IMPRESSION: 1. Interval anterior discectomy and fusion at C5-6. There is mild to moderate central canal narrowing, severe right and moderate left neural foraminal narrowing at this level, with central canal stenosis and neural foraminal stenosis improved. 2. Development of subtle stairstep anterolistheses C2 on C3, and C3 on C4. Stable subtle anterolisthesis C4 on C5. 3. Worsening spondylosis at C3-4 with a new left paracentral disc protrusion mildly flattening the left ventral aspect of the cord without cord signal abnormality. Worsening facet hypertrophic degeneration at this level. 4. Mildly worsened central disc protrusion and worsening facet degeneration at C4-5. No cord contact or impingement. 5. Stable findings at C6-7 and C7-T1. 6. Enlarged pituitary gland is incidentally noted as detailed above. Correlation with dedicated pituitary/brain MRI recommended. Electronically signed by: Gilberto Morataya MD 01/18/2024 12:52 PM EDT
== END 2023-12-27 10:45 | disposition home or self-care (01) ==
LOC: HO.MRI 10:44
PROVIDERS: Visit Provider Physician Assistant
DX: M54.12 Radiculopathy, cervical region (principal)
CPT/HCPCS: 72141

== ENCOUNTER 2025-04-02 09:49 | Outpatient (AMB) | payer OTHER, SELFPAY ==
--- NOTE | 2025-04-02 10:32 | HO.SPINEOV ---
Intake Visit Reasons: neck pain Intake Note: Ms. Jade is here today c/o neck pain. 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 Allergies acetaminophen (From Vicodin) Allergy (Verified 12/06/23 11:50) Dizziness, hives bee pollen (bee stings) Allergy (Verified 12/06/23 11:50) Anaphylaxis codeine Allergy (Verified 12/06/23 11:50) Dizzy, Swelling hydrocodone (From Vicodin) Allergy (Verified 12/06/23 11:50) Dizziness, hives hydromorphone Allergy (Verified 12/06/23 11:50) Hives spider venom (spider bites) Allergy (Verified 12/06/23 11:50) Anaphylaxis Assessment & Plan Assessment & Plan (1) Cervical radiculopathy: Code(s): M54.12 - Radiculopathy, cervical region Category: Medical Plan The patient is a 69 year old female who comes in today as an acute add on visit after calling our clinic and reporting that one of the screws in the neck fell off and stated she is having throat pain and issues swallowing. She reports that about a week ago she began feeling like she had a sore throat and trouble swallowing. She belives a screw came out of her surgical construct because of this. She states that she was swallowing food and felt a sharp clicking pain in her neck / throat and subsequent neck pain. She took MiraLax and inspected her bowel movement after and found what appeared to be a large screw head. She therefore was concerned that one of her screws from her previous neck fusion came out. I obtained XR imaging of her neck. The surgical construct is in place and located 14mm away from esophagus. Screws in place. Fusion noted between C5-6 over ventral surface of vertebral bodies. The patient was informed that she likely swallowed a screw head that was in her food, causing this sensation when swallowing. Her neck pain is probably secondary to the spasm / tension on the neck she experienced when this occured. No need for subsequent itervention. Orders: Orders XR cervical spine 4V Today M54.12 - Radiculopathy, cervical region Coding Level of Care Code Global (96519) Diagnoses Cervical radiculopathy M54.12
== END 2025-04-02 11:32 | disposition home or self-care (01) ==
LOC: HO.HNS 09:50
PROVIDERS: PCP Nurse Practitioner Family; Visit Provider Physician Assistant
DX: M54.12 Radiculopathy, cervical region (principal)
CPT/HCPCS: 99213

== ENCOUNTER 2025-04-02 09:49 | Outpatient (REF) | payer OTHER, SELFPAY ==
--- NOTE | ~2025-04-02 | XR_ITS ---
EXAMINATION: XR CERVICAL SPINE CLINICAL INFORMATION: M54.12 - Radiculopathy, cervical region COMPARISON: December 07, 2023 TECHNIQUE: AP, and lateral: Flexion, neutral, and extension view x-rays of the cervical spine. FINDINGS: There is no prevertebral soft tissue edema. Anterior fusion and discectomy has been performed at C5-6 and appears similar to the prior. With flexion and extension, there is no sign of instability. C6-7 demonstrates mild disc space narrowing with ossification of the anterior disc annulus, similar to the prior. There are uncovertebral osteophytes at C4-5, C5-6, and C6-7. There is sclerosis and small marginal osteophytes involving the facets at C3-4 and C4-5. XR/XR cervical spine 4V IMPRESSION: Stable anterior fusion and discectomy at C5-6. Stable mild degenerative changes. Electronically signed by: Orville Cristobal MD 04/02/2025 10:41 AM [employer]
== END 2025-04-02 09:50 | disposition home or self-care (01) ==
LOC: HO.HOSX 09:49
PROVIDERS: PCP Nurse Practitioner Family; Visit Provider Physician Assistant
DX: M54.12 Radiculopathy, cervical region (principal)
CPT/HCPCS: 72050

== ENCOUNTER → 2025-04-02 10:26 | Outpatient (BNV) | payer OTHER, SELFPAY | PROVIDERS: PCP Nurse Practitioner Family; Visit Provider Radiology Diagnostic Radiology | DX: M54.12 Radiculopathy, cervical region (principal); M50.30 Other cervical disc degeneration, unspecified cervical region; Z98.1 Arthrodesis status | CPT/HCPCS: 72050 ==